=== PATIENT | male | born 1985 | race Caucasian/White ===

== ENCOUNTER 2022-03-22 10:51 | Outpatient (CLI) | payer OTHER, SELFPAY ==
--- NOTE | ~2022-03-22 | CT_ITS ---
CT Abdomen and Pelvis with contrast. History: Abdominal pain. Spiral CT of the abdomen and pelvis was performed after the administration of intravenous contrast. 1 00 cc of Omnipaque 350 was administered intravenously without complication. Dose reduction technique was used on this scan by utilizing automated exposure control and iterative reconstruction technique. The dose-length product (DLP) was 473.55 mGy-cm. Findings: Scans through the lung bases demonstrate mild atelectatic change. The liver, spleen, pancreas, gallbladder, adrenals and kidneys are within normal limits. No evidence of aortic aneurysm. No lymphadenopathy is seen. There is no evidence of bowel obstruction. There is no evidence to suggest acute appendicitis or dive rticulitis. Images through the pelvis were performed. Urinary bladder unremarkable. Prostate gland is mildly enla rged. No ascites is seen. Impression: No significant abnormalities seen. Reviewed, dictated and finalized at [facility]. RR OPERATOR Impression: No significant abnormalities seen.
== END 2022-03-22 10:52 | disposition home or self-care (01) ==
PROVIDERS: PCP Family Medicine; Visit Provider Nurse Practitioner Family
DX: R10.9 Unspecified abdominal pain (principal); R19.04 Left lower quadrant abdominal swelling, mass and lump
CPT/HCPCS: 74177; Q9967

== ENCOUNTER 2022-04-19 07:47 | Outpatient (CLI) | payer OTHER, SELFPAY | END 2022-04-19 07:48 | disposition home or self-care (01) | PROVIDERS: PCP Family Medicine; Visit Provider Surgery | DX: K40.90 Unilateral inguinal hernia, without obstruction or gangrene, not specified as recurrent (principal); Z01.818 Encounter for other preprocedural examination | CPT/HCPCS: 36415; 86850; 86900; 86901 ==

== ENCOUNTER 2022-04-25 00:52 | Day surgery (SDC) | payer OTHER, SELFPAY ==
[2022-04-12 14:18] VITALS: BMI 25.9
--- NOTE | 2022-04-12 14:27 | SUR.PREOP ---
Report to the Outpatient Waiting Room, entrance under the green pavilion located off [facility], at time 1000 on date 04/25/2022. Planned Procedure Time: 1200. Time changes happen often and if your time is changed the preop area will call you the afternoon before. - You and your visitor will be asked to self-screen and do not enter if you have any COVID symptoms. - Only one visitor is requested with a max of two and NO children visitors are allowed at this time. - The patient visitor may be requested to leave or wait in car when not with patient due to distancing restrictions. - A mask is optional within the hospital at this time. Patients may have clear liquids (water, carbonated beverages, clear teas, apple juice) until 3 hours prior to surgery with a maximum of 20 ounces. - No food from midnight until time of surgery - Infants may have breast milk until 4 hours before surgery, formula 6 hours prior to surgery. - Children will be allowed to drink immediately following surgery. If applicable, please bring a bottle or sippy cup to assist with drinking. Juice, water, soda, and popsicles are readily available. For infants on formula, please bring formula the day of surgery. Pacifiers are allowed. Take the following medications with a SIP of water the morning of surgery: N/A DO NOT STOP ANY OF YOUR OTHER PRESCRIPTION MEDICATIONS PRIOR TO SURGERY ?EXCEPT THE FOLLOWING Medications to discontinue per physician N/A Date to take last dose N/A Please no make-up, nail urdu, hairspray, perfume, deodorant, or body powder the day of surgery. No jewelry (including any body piercings) or valuables the day of surgery, leave them at home. Please take a shower or bath the night before, or the morning of, surgery with an antibacterial soap. Wear comfortable, loose fitting clothing. Children are encouraged to wear pajamas. - Jewelry must be removed prior to entering the operating room. Rings and piercings that are not removed may be cut off. - The hospital will not accept responsibility for valuables. - Please leave all valuables, including medications, at home the day of surgery. If you are going home after surgery, a licensed fork truck driver must drive you home. - NO public transportation without another adult if you receive anesthesia. - We recommend that an adult stay with you for 24 hours following discharge. - We also recommend that you do not drive, make important decision, drink alcoholic beverages, or take any drugs that were not prescribed by your health care provider for at least 24 hours after your discharge time. For Pediatric surgeries, we recommend two adults accompany the child home. Follow any additional instructions given to you from your surgeon. If you or anyone in your household have experienced Covid symptoms in the past week, please notify your surgeon or the nurse liaison at the phone number below for possible testing. Telephone instructions given to CYRIL MO and asked if any additional questions and then verbalized understanding. Patient advised to call surgeon office or pre surgery nurse liaison [phone] if any additional questions.
[2022-04-25] VITALS (11 sets, daily range): BP systolic 116–137; BP diastolic 67–76; PULSE 50–89; RESP 14–20; TEMP 36.4–36.8; O2SAT 94–100
[2022-04-25] MEDS: ACETAMINOPHEN 500 MG TABLET 1000 MG PO (10:20)
[2022-04-25] MEDS: LACTATED RINGERS 1,000 ML 30 ML IV CONT ×3 (10:25→16:13)
[2022-04-25] MEDS: KETOROLAC 15 MG/ML VIAL (*BKC) IV PUSH ×2 (11:08→14:05)
--- NOTE | 2022-04-25 11:47 | WPDANESEPPF ---
Anes - Initial Pre Proc Eval Procedure: Operation Date: 04/25/22 12:00 Proposed Procedures p Robotic Assisted Laparoscopic Left Inguinal Hernia Repair with Mesh, Possible Right Inguinal Hernia Repair, Possible Open - Carols Contreras MD Date/Time: 04/25/22 11:47 Surgeon: Carlos Contreras MD Pre Op Diagnosis: reducible left inguinal hernia Patient Data Age: 37 Gender: M Height: 1.83 m Weight: 84.8 kg Last Vital Signs Temp 36.8 C 04/25/22 10:29 Pulse 61 04/25/22 10:29 Resp 16 04/25/22 10:29 BP 120/70 04/25/22 10:29 Pulse Ox 98 04/25/22 10:29 O2 Del Method Room Air 04/25/22 10:29 Allergies Allergy/AdvReac Type Severity Reaction Status Date / Time No Known Allergies Allergy Verified 04/25/22 10:00 Home Medications Medication Instructions Recorded Confirmed Type No Home Medications 06/29/21 06/29/21 History Laboratory Tests 04/19/22 10:34 Blood Type Cancelled Antibody Screen Cancelled Patient hx anesthesia problems: none Family hx anesthesia problems: none Results Review: All pre-operative results and documents have been reviewed as part of the pre-operative evaluation. [facility] Past Medical History Medical History BMI 25.0-25.9,adult BMI 26.0-26.9,adult Family History Family History Father Malignant neoplasm of prostate Mother Family history of type 2 diabetes mellitus Diabetes mellitus Sibling No problems noted. Father Family history of malignant melanoma Malignant neoplasm of prostate Mother Family history of type 2 diabetes mellitus Family history of diabetes mellitus in first degree relative Other Family history of lung cancer Social History Social History Years smoked: 18 Smoking status: Current every day smoker Tobacco type: cigarettes Second hand tobacco smoke exposure: Yes Alcohol intake: current Substance use: current Substance use type: marijuana Other substance usage details: FEW TIMES A YEAR Lack of Transportation: No Lack of Food: Never True Current Housing: I Have Housing Concerned About Future Housing: No Difficulty Paying Gas/Electric Bills: No Difficulty Paying for Meds: No Currently Unemployed: No Education: Trade/Vocational Certificate Difficulty w/ Childcare or Family Care: No Living arrangements: with family Occupation/Education: occupation 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 Informed Consent: The patient's anesthetic plan and its attendant risks and benefits were discussed with the patient/family/POA. Questions were solicited and answers provided to the satisfaction of the patient/family/POA.
--- NOTE | 2022-04-25 11:53 | WPDHPUPDATE1 ---
History and Physical Update Update Date/Time: 04/25/22 11:53 History and Physical has been reviewed, including an updated exam of the patient. There are NO changes in the patient's condition. Risks, benefits, and alternatives have been discussed and questions answered. Patient agrees to proceed with procedure.
[2022-04-25] MEDS: ceFAZolin 2 GM/D5W 50 ML 2 GM/50 ML BAG IVPB (12:02)
[2022-04-25] MEDS: LIDOCAINE HCL 1% LOCAL INJ 20 ML VIAL INFILTRATE (12:48)
[2022-04-25] MEDS: BUPIVACAINE/EPINEPHRINE 0.5% 10 ML VIAL 20 ML INFILTRATE (12:49)
[2022-04-25] MEDS: fentaNYL CITRATE INJ (*CRX) 100 MCG/2 ML VIAL 25 MCG IV PUSH ×7 (15:37→17:10)
[2022-04-25] MEDS: oxyCODONE HCL (*CRX) 5 MG TAB IR PO (16:30)
--- NOTE | 2022-04-25 19:28 | W.PM.PROC2 ---
Procedure Note - Detailed Date of Procedure 04/25/22 Pre-op Diagnosis reducible left inguinal hernia Post-op Diagnosis Other (Bilateral inguinal hernias ( left indirect, right direct).) Procedure Performed Robotic assisted bilateral laparoscopic inguinal hernia repairs with Bard 3D mid weight mesh. Surgeon Carlos Contreras MD Game Show Host BENNETT Rojas Anesthesia General Indications Patient presented with complaints of pain and a bulge in the left groin region. Examination of the left groin revealed an inguinal hernia which was reducible. Exam of the right side showed a possible small right inguinal hernia. He presents now for a robotic assisted laparoscopic left inguinal hernia repair with mesh with possible repair right inguinal hernia with mesh. Findings The patient had a large left indirect inguinal hernia without bowel or omentum extending into the hernia sac. He also had a smaller direct defect in the right inguinal region. Description of Procedure After informed consent was obtained the patient was brought to the operating room where he was placed in supine position and then general endotracheal anesthesia was administered. The abdomen and bilateral groin regions were then prepped and draped in the usual sterile fashion. A time-out was then performed correctly identifying the patient as well as the procedure to be performed. The initial left groin skin marking was visible. He was given Ancef for perioperative IV antibiotics. First gained access into the abdomen by placing a 10mm Optiview port the left upper quadrant with a direct optical insertion. Once inside the abdomen I insufflated to an adequate pneumoperitoneum of 15mmHg of CO2. I then placed the patient in the head-down Trendelenburg position to allow the bowel to fall out of the pelvis. I could see that he had a large left-sided indirect inguinal hernia without incarceration of bowel or omentum within the hernia sac. Examination of the right groin region revealed a smaller direct inguinal defect. This point I decided to proceed with a bilateral robotic assisted laparoscopic inguinal hernia repair with mesh. Additional robotic trocar ports to include 3 separate 8mm robotic trocar port were placed across the mid abdominal wall under direct visualization. The [employer] robot was then brought to the patient's bedside and docked to the right side of the patient. The robotic arms were then attached to the robotic ports and the robotic instruments were advanced into the abdomen under direct visualization. I then scrubbed out of the procedure sat down at the [employer] robot console to perform the dissection and repair robotically. I 1st started by starting the preperitoneal flap on the left side and extending it completely across the lower abdomen to the right side. I dissected down into this avascular plane with robotic hook cautery identifying both inferior epigastric vessels and preserved them without injury. The bladder flap was lowered and the pubic symphysis and bilateral pubic tubercles were identified. On the right side I dissected the peritoneum at of the direct defect. On the left side I dissected out the indirect inguinal hernia sac without injuring the vas deferens or testicular vessels. I everted the left-sided inguinal hernia sac. I continued my dissection of the peritoneal flap proximally on both sides back up onto the psoas muscles bilaterally. I then proceeded to close the direct defect on the right with a 2-0 absorbable V lock suture. I then chose 2 pieces of Bard 3D mid weight mesh for the repair. A piece can figure for the left side was chosen and a piece configured for the right side was chosen. Both pieces of mesh were extra large measuring 17cm in length by 12cm in with. I 1st started by placing the left-sided mesh 1st and place the mesh into the left groin region with the medial portion of mesh overlapping the pubic tubercle and extending down into the spac
== END 2022-04-25 17:40 | disposition home or self-care (01) ==
PROVIDERS: PCP Family Medicine; Visit Provider Surgery
PROC: 8E0Y4CZ Robotic Assisted Procedure of Lower Extremity, Percutaneous Endoscopic Approach (ICD-10-PCS; CPT 49650; principal; 2022-04-25 12:00)
DX: K40.20 Bilateral inguinal hernia, without obstruction or gangrene, not specified as recurrent (principal); F17.210 Nicotine dependence, cigarettes, uncomplicated; F12.90 Cannabis use, unspecified, uncomplicated
CPT/HCPCS: 49650; S2900; 36415; 86850; 86900; 86901; A9270; C1781; J0330; J0690; J1100; J1885; J2250; J2405; J2704; J2710; J3010; J7030; J7120

== ENCOUNTER 2024-12-26 13:46 | Emergency (ER) | payer OTHER, SELFPAY ==
--- NOTE | 2024-12-26 13:58 | ED_ITS ---
HPI - General Adult General Chief complaint: Upper Respiratory Infection Stated complaint: stomach pain Source: patient and RN notes reviewed Mode of arrival: ambulatory Limitations: no limitations History of Present Illness HPI narrative: 39 y/o male presented for c/o abdominal cramping and diarrhea. Onset 6 days. Endorses associated body aches and intermittent nausea. Pt rates pain 4/10 currently. He took kaopectate at onset. Pt felt better for one day but symptoms returned yesterday. Tolerating po. 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 Denies cough, sob, fever, hematochezia or melena. Related Data Home Medications ?Medication ?Instructions ?Recorded ?Confirmed ?Last Taken ?Type No Home Medications 12/26/24 12/26/24 U nknown History Allergies Allergy/AdvReac Type Severity Reaction Status Date / Time No Known Allergies Allergy Verified 12/26/24 13:59 Review of Systems Review of Systems: CONSTITUTIONAL: Denies body aches, fever, chills ENT: Denies rhinorrhea, congestion CARDIOVASCULAR: Denies chest pain, palpitations, or edema. RESPIRATORY: Denies cough or dyspnea. GASTROINTESTINAL: Endorses abdominal cramping, diarrhea. Denies diarrhea, hematochezia, melena, hematemesis GENITOURINARY: Denies dysuria, hematuria, or CVA tenderness. MUSCULOSKELETAL: Denies back pain, joint pain, or myalgia. NEUROLOGIC: Denies headache, numbness, tingling, or weakness. All systems reviewed & are unremarkable except as noted in HPI and below PMFSH Past Medical History Medical History BMI 25.0-25.9,adult BMI 26.0-26.9,adult Surgical History Surgical History S/P hernia repair robotic assisted bilateral laparoscopic inguinal hernia repairs with Bard 3D mid weight mesh on 04/25/22 Family History Family History Father Malignant neoplasm of prostate Mother Family history of type 2 diabetes mellitus Diabetes mellitus Sibling No problems noted. Father Family history of malignant melanoma Malignant neoplasm of prostate Mother Family history of type 2 diabetes mellitus Family history of diabetes mellitus in first degree relative Other Family history of lung cancer Social History Social History Years smoked: 18 Smoking status: Current every day smoker Tobacco type: cigarettes Second hand tobacco smoke exposure: Yes Alcohol intake: current Substance use: current Substance use type: marijuana Other substance usage details: FEW TIMES A YEAR Lack of Transportation: No Lack of Food: Never True Current Housing: I Have Housing Concerned About Future Housing: No Difficulty Paying Gas/Electric Bills: No Difficulty Paying for Meds: No Currently Unemployed: No Education: Trade/Vocational Certificate Difficulty w/ Childcare or Family Care: No Living arrangements: with family Occupation/Education: occupation 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 Please see nursing chart for further information. There is no relevant family history pertinent to the presenting complaint Exam Narrative: GENERAL: Well-appearing, and in no acute distress. EYES: EOMI. Conjunctivae normal. ENT: Mucous membranes pink and moist. CHEST: No respiratory distress. Clear to auscultation. HEART: Regular rate and rhythm. No murmur appreciated. Normal peripheral pulses. ABDOMEN: abd soft, nondistended, normal active bowel sounds. Nontender abdomen; No guarding, rebound tenderness, asymmetry SKIN: Warm, dry, no rash. Capillary refill normal. Normal skin turgor. NEURO: No focal deficits. Alert and oriented x3. PSYCH: Normal affect. Course Course Emergency Course: Patient is aware of diagnosis, understands and agrees to treatment plan. Anticipatory guidance given. Patient agrees to follow-up as directed and is aware of reasons to seek care at the emergency department. Portions of this record may have been created with voice recognition software Level of Care: Express Care Visit Medical Decision Making MDM Narrative Medical decision making narrative: Pt is in stable condition, tolerating PO. Discussed physical exam findings. Neg flu/covid. Advised supportive measures and signs/symptoms to go to the ER. Pt is appropriate for outpt treatment and f/u. Differential Diagnosis Differential Diagnosis: Consider gastroenteritis, GERD, bowel obstruction or perforation, cholecystitis, appendicitis, hernia, mesenteric ischemia, pancreatitis, peritonitis, AAA Discharge Plan Discharge Clinical Impression: Acute diarrhea Patient Disposition: Home Condition: Stable Instructions: Antibiotic Form, Gastroenteritis (ED) Additional Instructions: Stay hydrated. Take small sips of fluid containing electrolytes frequently. Clear liquids (broth, jello, tea, sprite, pedialyte) Effort foods (bananas, rice, applesauce, toast, crackers) Avoid fatty, greasy, fried or spicy foods. Limit dairy until symptoms are improved. [id number] Imodium according to package directions Recommend probiotic such as align or lactobacillus (Activia yogurt) to help with symptoms. You should go to the hospital if you experience persistent nausea and vomiting that does not resolve and does not allow you to tolerate any food or fluids, fevers, increasing abdominal pain, persistent diarrhea, dizziness, fainting, or for any other concerns. Follow up with primary care provider in 3 days. Patient Language: Bahraini Prescriptions: No Action No Home Medications Follow-up/Referrals: Joy Child MD [Primary Care Provider, Pediatrics] Time of Disposition: 14:33
[2024-12-26 13:59] VITALS: BP 139/70; PULSE 68; RESP 18; TEMP 36.1; O2SAT 98
[2024-12-26 14:28] LABS: EDCOVIDSCREEN Negative (Negative); EDINFLUASCREEN Negative (Negative); EDINFLUBSCREEN Negative (Negative)
== END 2024-12-26 14:37 | disposition home or self-care (01) ==
PROVIDERS: Emergency Provider Nurse Practitioner Family; PCP Pediatrics
DX: R19.7 Diarrhea, unspecified (principal); Z20.822 Contact with and (suspected) exposure to COVID-19; F17.210 Nicotine dependence, cigarettes, uncomplicated
CPT/HCPCS: 87426; 87804; 99212; G0463